=== PATIENT | female | born 1960 | race Caucasian/White ===

== ENCOUNTER → 2019-11-04 08:46 | Outpatient (CLI) | payer OTHER, SELFPAY ==
[2019-11-04 09:35] LABS: Influenza A - CEPHEID Flu A NEGATIVE (NEGATIVE); Influenza B - CEPHEID Flu B NEGATIVE (NEGATIVE)
== END ==
PROVIDERS: Family Provider Registered Nurse Women's Health Care, Ambulatory; PCP Registered Nurse Women's Health Care, Ambulatory; Visit Provider Physician Assistant
DX: R68.89 Other general symptoms and signs (principal)
CPT/HCPCS: 87502

== ENCOUNTER → 2020-09-06 15:55 | Outpatient (CLI) | payer OTHER, SELFPAY ==
--- NOTE | 2020-09-06 | DI.RAD.S_ITS ---
PROCEDURE: XR FOOT LT MIN 3V INDICATIONS: LEFT FOOT PAIN TECHNIQUE: 3 views of the foot were acquired. COMPARISON: None. FINDINGS: Bones: No fractures or dislocations. No suspicious bony lesions. There is severe 1st metatarsophalangeal joint degeneration. A small ossicle or broken osteophyte is noted at the 1st metatarsophalangeal joint. Soft tissues: No tibiotalar joint effusion. Achilles tendon appears normal. 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 Dictated by: Sonya Schofield M.D. on 09/06/2020 at 17:38 Approved by: Sonya Schofield M.D. on 09/06/2020 at 17:41
== END ==
PROVIDERS: Family Provider Registered Nurse Women's Health Care, Ambulatory; PCP Internal Medicine; Referring Provider Internal Medicine; Visit Provider Internal Medicine
DX: M79.672 Pain in left foot (principal); M19.072 Primary osteoarthritis, left ankle and foot
CPT/HCPCS: 73630

== ENCOUNTER → 2020-09-18 10:18 | Outpatient (CLI) | payer OTHER, SELFPAY ==
--- NOTE | 2020-09-18 | DI.MG.S_ITS ---
BILATERAL DIGITAL SCREENING MAMMOGRAM 3D/2D WITH CAD: 09/18/2020 CLINICAL: Routine screening. Family history of breast cancer. Comparison is made to exams dated: 03/26/2018 mammogram, 04/26/2016 mammogram, and 12/30/2014 mammogram - [facility]. The tissue of both breasts is heterogeneously dense. This may lower the sensitivity of mammography. Current study was also evaluated with a Computer Aided Detection (CAD) system. There is new cluster of grouped calcifications in the left breast at 11 o'clock posterior depth. No other significant masses, calcifications, or other findings are seen in either breast. IMPRESSION: INCOMPLETE: NEEDS ADDITIONAL IMAGING EVALUATION The new cluster of grouped calcifications in the left breast are indeterminate. Additional views with possible ultrasound are recommended. This exam was interpreted at Station ID: [id number]. NOTE: For mammograms, a report in lay terms will be sent to the patient. Approximately 15% of breast malignancies will not be visualized mammographically. In the management of a palpable breast mass, a negative mammogram must not discourage biopsy of a clinically suspicious lesion. Electronically Signed By: Jojo pacheco/thomas:09/20/2020 11:56:17 letter sent: Additional Imaging Needed ACR BI-RADS Category 0: Incomplete 3340F
== END ==
PROVIDERS: Family Provider Registered Nurse Women's Health Care, Ambulatory; PCP Internal Medicine; Referring Provider Internal Medicine; Visit Provider Internal Medicine
DX: Z12.31 Encounter for screening mammogram for malignant neoplasm of breast (principal); Z80.3 Family history of malignant neoplasm of breast
CPT/HCPCS: 77063; 77067

== ENCOUNTER → 2020-10-13 14:05 | Outpatient (CLI) | payer OTHER, SELFPAY ==
--- NOTE | 2020-10-13 | DI.MG.S_ITS ---
UNILATERAL LEFT DIGITAL DIAGNOSTIC MAMMOGRAM 3D/2D WITH ADDITIONAL VIEWS: 10/13/2020 CLINICAL: Additional evaluation requested from prior study. Comparison is made to exams dated: 09/18/2020 mammogram, 03/26/2018 mammogram, and 04/26/2016 mammogram - [facility]. The tissue of left breast is heterogeneously dense. This may lower the sensitivity of mammography. There is new cluster of grouped fine calcifications in the left breast at 11 o'clock posterior depth. These are seen in additional views. No other significant masses or calcifications are seen in the breast. IMPRESSION: SUSPICIOUS OF MALIGNANCY The new cluster of grouped fine calcifications in the left breast are at a moderate suspicion for malignancy. A stereotactic biopsy is recommended. Findings and recommendations were discussed with the patient by the onsite radiologist, Dr. Rhodes, at the time of the exam. This exam was interpreted at Station ID: [id number]. NOTE: For mammograms, a report in lay terms will be sent to the patient. Approximately 15% of breast malignancies will not be visualized mammographically. In the management of a palpable breast mass, a negative mammogram must not discourage biopsy of a clinically suspicious lesion. Electronically Signed By: Norm sawyer/thomas:10/13/2020 14:49:20 letter sent: Biopsy Required ACR BI-RADS Category 4b: Suspicious abnormality - intermediate suspicion of malignancy 3344F
== END ==
PROVIDERS: Family Provider Registered Nurse Women's Health Care, Ambulatory; PCP Internal Medicine; Referring Provider Internal Medicine; Visit Provider Internal Medicine
DX: R92.1 Mammographic calcification found on diagnostic imaging of breast (principal)
CPT/HCPCS: 77065; G0279

== ENCOUNTER → 2020-11-08 14:53 | Outpatient (CLI) | payer OTHER, SELFPAY ==
--- NOTE | 2020-11-08 15:18 | DI.ECHO.S_ITS ---
Echocardiogram Report + + :Name: JUAN MANUEL RUBIO Study Date: 11/08/2020 Height: 62 in : :[facility] Weight: 130 lb : : Gender: Female BSA: 1.6 m2 : :: 1960 Age: 60 yrs BP: 147/93 mmHg: :Reason For Study: MITRAL VALVE PROLAPSE : :Ordering Physician: CARMELLA WAY : :PARAMJIT Performed By: Farrah Mclain : :Referring: CARMELLA WAYP : + + Interpretation Summary The left ventricle is normal in size and wall thickness. Left ventricular systolic function appears normal without focal wall motion abnormalities. The ejection fraction is estimated to be 55-60%. Diastolic parameters suggest a relaxation abnormality of the left ventricle, consistent with probable normal filling pressures. The right ventricle is normal in size and function. Pulmonary artery pressures cannot be estimated because of the lack of a measurable TR jet velocity but the IVC suggests a CVP of around 3 mmHg. Both atria are normal in size. The mitral valve leaflets appear mildly thickened, but open well. There is mild mitral valve prolapse. There is mild to moderate mitral regurgitation. The mitral regurgitant jet is eccentrically directed. There is no other significant valvular heart disease. The aortic root is normal size. Procedure: A two-dimensional transthoracic echocardiogram with color flow and Doppler was performed. The study quality was technically difficult. There is no prior echocardiogram noted for this patient. The patient was in sinus rhythm with heart rates between 57-68 bpm during the exam. Left Ventricle: The left ventricle is normal in size and wall thickness. Left ventricular systolic function appears normal without focal wall motion abnormalities. The ejection fraction is estimated to be 55-60%. Diastolic parameters suggest a relaxation abnormality of the left ventricle, consistent with probable normal filling pressures. Right Ventricle: The right ventricle is normal in size and function. Atria: Both atria are normal in size. There is no Doppler evidence for an interatrial shunt. Mitral Valve: The mitral valve leaflets appear mildly thickened, but open well. There is mild mitral valve prolapse. There is mild to moderate mitral regurgitation. The mitral regurgitant jet is eccentrically directed. Aortic Valve: The aortic valve is trileaflet. The aortic valve opens well. There is no aortic valve stenosis. No aortic regurgitation is present. Tricuspid Valve: The tricuspid valve is not well visualized. The tricuspid valve is not well visualized, but is grossly normal. Pulmonary artery pressures cannot be estimated because of the lack of a measurable TR jet velocity but the IVC suggests a CVP of around 3 mmHg. Pulmonic Valve: The pulmonic valve is not well visualized. There is trace pulmonic regurgitation. Great Vessels: The aortic root is normal size. The dimensions of the ascending aorta are normal. The IVC is of normal diameter and collapses greater than 50% with a sniff. This suggests a low right atrial pressure of 3 mm Hg. Pericardium/ Pleura There is no pericardial effusion. There is no pleural effusion. MMode/2D Measurements & Calculations LVIDd: 4.0 cm LVOT diam: 2.0 cm LVIDs: 2.8 cm Ao root diam: 3.3 cm FS: 31.4 % asc Aorta Diam: 2.8 cm IVSd: 0.88 cm Ao Arch Diam (Prox Trans): 2.2 cm LVPWd: 0.73 cm LV narvaez. diameter/BSA (cm/m^2): 2.5 LV sys. diameter/BSA (cm/m^2): 1.7 LA A2 area: 14.5 cm2 RA long axis: 4.6 cm LA A4 area: 18.1 cm2 RA area: 12.7 cm2 LA length (vol): 5.3 cm RA vol: 29.7 ml LA vol: 42.0 ml RA : 18.7 ml/m2 LA vol index: 26.4 ml/m2 IVC diam: 1.1 cm RVD1 (basal): 2.6 cm TAPSE: 2.2 cm Doppler Measurements & Calculations Ao V2 max: 115.3 cm/sec LVOT Max Chapin: 79.2 cm/sec Ao V2 mean: 78.9 cm/sec LV V1 max P.5 mmHg Ao max P.3 mmHg LV V1 VTI: 17.1 cm Ao mean P.9 mmHg AMY(I,D): 2.4 cm2 Ao V2 VTI: 21.9 cm AMY(V,D): 2.1 cm2 sev ratio: 0.78 AMY indexed to BSA (cm^2/m^2): 1.5 MV E max chapin: 78.6 cm/sec PA V2 max: 61.8 cm/sec MV A max chapin: 104.6 cm/sec PA V2 mean: 42.8 cm/sec MV E/A: 0.75 PA mean P.83 mmHg Med Peak E' Chapin: 6.2 cm/sec PA pr(Accel): 10.5 mmHg E/E' med: 12.6 Lat Peak E' Chapin: 6.9 cm/sec E/E' lat: 11.3 E/e' average: 12.0 MV dec time: 0.27 sec SV(LVOT): 52.5 ml Reading Physician:07:36 PM
== END ==
PROVIDERS: Family Provider Registered Nurse Women's Health Care, Ambulatory; PCP Internal Medicine; Referring Provider Internal Medicine; Visit Provider Internal Medicine
DX: I34.1 Nonrheumatic mitral (valve) prolapse (principal); I34.0 Nonrheumatic mitral (valve) insufficiency
CPT/HCPCS: 93306

== ENCOUNTER → 2021-08-10 08:06 | Outpatient (CLI) | payer OTHER, SELFPAY ==
[2021-08-10 11:29] LABS: COVID19 -Nasal RAPID Negative (Negative)
== END ==
PROVIDERS: Family Provider Registered Nurse Women's Health Care, Ambulatory; PCP Internal Medicine; Visit Provider Nurse Practitioner Family
DX: Z20.822 Contact with and (suspected) exposure to COVID-19 (principal); R19.7 Diarrhea, unspecified; R53.83 Other fatigue; R09.81 Nasal congestion
CPT/HCPCS: 87635

== ENCOUNTER → 2021-10-05 17:46 | Outpatient (CLI) | payer OTHER, SELFPAY ==
--- NOTE | 2021-10-05 | DI.MG.S_ITS ---
BILATERAL DIGITAL SCREENING MAMMOGRAM 3D/2D WITH CAD: 10/05/2021 CLINICAL: Routine screening. Family history of breast cancer. Comparison is made to exams dated: 10/13/2020 mammogram, 09/18/2020 mammogram, 03/26/2018 mammogram, and 04/26/2016 mammogram - [facility]. The tissue of both breasts is heterogeneously dense. This may lower the sensitivity of mammography. Current study was also evaluated with a Computer Aided Detection (CAD) system. No significant masses, calcifications, or other findings are seen in either breast. There has been no significant interval change. IMPRESSION: NEGATIVE There is no mammographic evidence of malignancy. A 1 year screening mammogram is recommended. This exam was interpreted at Station ID: [id number]. NOTE: For mammograms, a report in lay terms will be sent to the patient. Approximately 15% of breast malignancies will not be visualized mammographically. In the management of a palpable breast mass, a negative mammogram must not discourage biopsy of a clinically suspicious lesion. Electronically Signed By: Basil Becerra M.D., jr/thomas:10/06/2021 08:47:44 letter sent: Normal Exam ACR BI-RADS Category 1: Negative 3341F
== END ==
PROVIDERS: Family Provider Registered Nurse Women's Health Care, Ambulatory; PCP Internal Medicine; Referring Provider Internal Medicine; Visit Provider Internal Medicine
DX: Z12.31 Encounter for screening mammogram for malignant neoplasm of breast (principal); Z80.3 Family history of malignant neoplasm of breast
CPT/HCPCS: 77063; 77067

== ENCOUNTER → 2021-12-02 09:24 | Outpatient (CLI) | payer OTHER, SELFPAY ==
[2021-12-02 10:46] LABS: COVID19 -Nasal RAPID Negative (Negative)
== END ==
PROVIDERS: Family Provider Registered Nurse Women's Health Care, Ambulatory; PCP Internal Medicine; Visit Provider Nurse Practitioner Critical Care Medicine
DX: Z20.822 Contact with and (suspected) exposure to COVID-19 (principal)
CPT/HCPCS: 87635

== ENCOUNTER → 2022-05-19 13:26 | Outpatient (CLI) | payer OTHER, SELFPAY ==
[2022-05-19 14:17] LABS: COVID19 -Nasal RAPID Negative (Negative)
== END ==
PROVIDERS: Family Provider Registered Nurse Women's Health Care, Ambulatory; PCP Internal Medicine; Visit Provider Nurse Practitioner Family
DX: Z20.822 Contact with and (suspected) exposure to COVID-19 (principal)
CPT/HCPCS: 87635

== ENCOUNTER → 2022-05-19 13:33 | Outpatient (CLI) | payer OTHER, SELFPAY ==
--- NOTE | 2022-05-19 13:35 | DI.RAD.S_ITS ---
PROCEDURE: XR CHEST 2V INDICATIONS: cough TECHNIQUE: 2 views of the chest were acquired. COMPARISON: None. FINDINGS: Surgical changes and devices: None. Lungs and pleura: Lungs are clear. No pleural effusions or pneumothorax. Mediastinum: Mediastinal contours are normal. Heart size is normal. Bones and chest wall: No suspicious bony abnormalities. Soft tissues appear unremarkable. IMPRESSION: No evidence acute pulmonary process. Dictated by: Meir Hagan M.D. on 05/19/2022 at 16:50 Approved by: Meir Hagan M.D. on 05/19/2022 at 16:51
== END ==
PROVIDERS: Family Provider Registered Nurse Women's Health Care, Ambulatory; PCP Internal Medicine; Referring Provider Nurse Practitioner Family; Visit Provider Nurse Practitioner Family
DX: R05.9 Cough, unspecified (principal); Z20.822 Contact with and (suspected) exposure to COVID-19
CPT/HCPCS: 71046; 87635

== ENCOUNTER → 2022-10-27 10:57 | Outpatient (CLI) | payer OTHER, SELFPAY ==
--- NOTE | 2022-10-27 | DI.MG.S_ITS ---
BILATERAL DIGITAL SCREENING MAMMOGRAM 3D/2D WITH CAD: 10/27/2022 CLINICAL: Routine screening. Family history of breast cancer. Comparison is made to exams dated: 10/05/2021 mammogram, 10/13/2020 mammogram, 09/18/2020 mammogram, and 03/26/2018 mammogram - [facility]. Both breasts are heterogeneously dense, which may obscure small masses (category c / 51-75% glandular tissue). Current study was also evaluated with a Computer Aided Detection (CAD) system. There is a biopsy clip in the left breast. No significant masses, calcifications, or other findings are seen in either breast. There has been no significant interval change. IMPRESSION: NEGATIVE There is no mammographic evidence of malignancy. A 1 year screening mammogram is recommended. Based on Tyrer-Cuzick model (a risk assessment model), the patient's lifetime risk is 20.4% and her 10 year risk is 8.6%. If a patient has an elevated risk, a more comprehensive evaluation should be considered and/or a referral to a genetic counselor. The [place] [employer], [place] [employer], and NCCN Guidelines advise the consideration of Breast MRI as an adjunct to screening mammography in patients whose Lifetime risk to develop breast cancer is 20% or higher. This exam was interpreted at Station ID: [id number]. NOTE: For mammograms, a report in lay terms will be sent to the patient. Approximately 15% of breast malignancies will not be visualized mammographically. In the management of a palpable breast mass, a negative mammogram must not discourage biopsy of a clinically suspicious lesion. Electronically Signed By: Jojo pacheco/thomas:10/27/2022 14:32:35 letter sent: Normal Exam ACR BI-RADS Category 1: Negative 3341F
== END ==
PROVIDERS: Family Provider Registered Nurse Women's Health Care, Ambulatory; PCP Internal Medicine; Referring Provider Internal Medicine; Visit Provider Internal Medicine
DX: Z12.31 Encounter for screening mammogram for malignant neoplasm of breast (principal); Z80.3 Family history of malignant neoplasm of breast
CPT/HCPCS: 77063; 77067

== ENCOUNTER → 2022-12-17 13:28 | Outpatient (CLI) | payer OTHER, SELFPAY ==
[2022-12-17 14:15] LABS: Influenza A - CEPHEID Flu A NEGATIVE (NEGATIVE); Influenza B - CEPHEID Flu B NEGATIVE (NEGATIVE); Respiratory Syncytial Virus Negative (Negative)
[2022-12-17 14:17] LABS: COVID-19 CEPHEID 4-PLEX PCR Negative (Negative)
== END ==
PROVIDERS: Family Provider Registered Nurse Women's Health Care, Ambulatory; PCP Internal Medicine; Visit Provider Student in an Organized Health Care Education/Training Program
DX: R05.1 Acute cough (principal)
CPT/HCPCS: 0241U

== ENCOUNTER → 2022-12-17 14:18 | Outpatient (CLI) | payer OTHER, SELFPAY ==
--- NOTE | 2022-12-17 14:19 | DI.RAD.S_ITS ---
PROCEDURE: XR CHEST 2V INDICATIONS: R middle lobe pneumonia vs airway dz TECHNIQUE: 2 views of the chest were acquired. COMPARISON: [facility], CR, XR CHEST 2V, 05/19/2022, 13:27. FINDINGS: Surgical changes and devices: None. Lungs and pleura: Lungs are clear. No pleural effusions or pneumothorax. Mediastinum: Mediastinal contours are normal. Heart size is normal. Bones and chest wall: No suspicious bony abnormalities. Pectus excavatum deformity. Soft tissues appear unremarkable. IMPRESSION: No acute cardiopulmonary disease. Dictated by: Jojo Ellington M.D. on 12/17/2022 at 13:44 Approved by: Jojo Ellington M.D. on 12/17/2022 at 13:45
== END ==
PROVIDERS: Family Provider Registered Nurse Women's Health Care, Ambulatory; PCP Internal Medicine; Referring Provider Student in an Organized Health Care Education/Training Program; Visit Provider Student in an Organized Health Care Education/Training Program
DX: J06.9 Acute upper respiratory infection, unspecified (principal); R53.83 Other fatigue; R05.1 Acute cough
CPT/HCPCS: 0241U; 71046

== ENCOUNTER → 2023-11-13 12:47 | Outpatient (CLI) | payer OTHER, SELFPAY ==
--- NOTE | 2023-11-13 12:48 | DI.MG.S_ITS ---
BILATERAL DIGITAL SCREENING MAMMOGRAM 3D/2D WITH CAD: 11/13/2023 CLINICAL: Routine screening. Family history of breast cancer. Comparison is made to exams dated: 10/27/2022 mammogram, 10/05/2021 mammogram, 10/13/2020 mammogram, and 09/18/2020 mammogram - [facility]. There are scattered areas of fibroglandular density in both breasts (category b / 25%-50% glandular tissue). Current study was also evaluated with a Computer Aided Detection (CAD) system. There is a biopsy clip in the left breast. No significant masses, calcifications, or other findings are seen in either breast. There has been no significant interval change. IMPRESSION: NEGATIVE There is no mammographic evidence of malignancy. A 1 year screening mammogram is recommended. Based on the Tyrer Cuzick model (a risk assessment model) the patient's lifetime risk is 13.6% and her 10 year risk is 5.8%. According to the ACR, ACS, and NCCN guidelines, an annual breast MRI exam along with mammogram is recommended if the patient's lifetime risk is 20% or greater. This exam was interpreted at Station ID: [id number]. NOTE: For mammograms, a report in lay terms will be sent to the patient. Approximately 15% of breast malignancies will not be visualized mammographically. In the management of a palpable breast mass, a negative mammogram must not discourage biopsy of a clinically suspicious lesion. Electronically Signed By: Jojo pacheco/thomas:11/13/2023 14:48:45 letter sent: Normal Exam ACR BI-RADS Category 1: Negative 3341F
== END ==
PROVIDERS: Family Provider Registered Nurse Women's Health Care, Ambulatory; PCP Internal Medicine; Referring Provider Internal Medicine; Visit Provider Internal Medicine
DX: Z12.31 Encounter for screening mammogram for malignant neoplasm of breast (principal); Z80.3 Family history of malignant neoplasm of breast
CPT/HCPCS: 77063; 77067

== ENCOUNTER → 2023-11-27 | Outpatient (CLI) | payer OTHER, SELFPAY ==
--- NOTE | 2023-11-29 08:30 | DI.ECHO.S_ITS ---
[facility] +---------+ : : [address] [place] : : : : [id number] : : : : Phone: [phone]---------+ Echocardiogram Report + + :Name: JUAN MANUEL RUBIO Study Date: 11/27/2023 Height: 62 in : :[facility] ReadingLocation: Weight: 130 lb : : Gender: Female BSA: 1.6 m2 : :: 1960 Age: 63 yrs BP: 131/83 mmHg: :Reason For Study: HEART PALPITATIONS, MURMUR : :Ordering Physician: CARMELLA WAY : :STERILE PROCESSING TECHNICIAN Performed By: Farrah Mclain : :Referring: CARMELLA WAY STERILE PROCESSING TECHNICIAN : + + Interpretation Summary The ejection fraction is estimated to be 55-60%. Diastolic function could not be accurately assessed due to unobtainable data. The right ventricular cavity is small. The right ventricular systolic function is normal. There is mild mitral valve prolapse. There is mild to moderate mitral regurgitation. Pulmonary artery pressures cannot be estimated because of the lack of a measurable TR jet velocity but the IVC suggests a CVP of around 3 mmHg. Compared to the prior study dated 11/08/2020, no significant change. Procedure: A two-dimensional transthoracic echocardiogram with color flow and Doppler was performed. The study quality was technically adequate. Comparison is made with the echocardiogram of 11/08/2020. The patient was in normal sinus rhythm during the exam. Left Ventricle: The left ventricle is normal in size and wall thickness. The ejection fraction is estimated to be 55-60%. Diastolic function could not be accurately assessed due to unobtainable data. Right Ventricle: The right ventricular cavity is small. The right ventricular systolic function is normal. Atria: The left atrial size is normal. Right atrial size is normal. There is no Doppler evidence for an interatrial shunt. Mitral Valve: The mitral valve leaflets appear mildly thickened, but open well. There is mild mitral valve prolapse. The mitral regurgitant jet is eccentrically directed. There is mild to moderate mitral regurgitation. Aortic Valve: The aortic valve is trileaflet. The aortic valve opens well. There is no aortic valve stenosis. No aortic regurgitation is present. Tricuspid Valve: The tricuspid valve is normal in structure and function. No tricuspid regurgitation. Pulmonary artery pressures cannot be estimated because of the lack of a measurable TR jet velocity but the IVC suggests a CVP of around 3 mmHg. Pulmonic Valve: The pulmonic valve leaflets are thin and pliable; valve motion is normal. There is a trace or physiologic amount of pulmonic regurgitation. Great Vessels: The aortic root is normal size. The dimensions of the ascending aorta are normal. The IVC is of normal diameter and collapses greater than 50% with a sniff. This suggests a low right atrial pressure of 3 mm Hg. Pericardium/ Pleura There is no pericardial effusion. There is no pleural effusion. MMode/2D Measurements & Calculations LVIDd: 4.4 cm LVOT diam: 2.0 cm LVIDs: 2.8 cm Ao root diam: 3.0 cm FS: 37.0 % asc Aorta Diam: 2.9 cm EPSS: 0.22 cm Ao Arch Diam (Prox Trans): 2.3 cm IVSd: 0.78 cm LVPWd: 0.76 cm LV narvaez. diameter/BSA (cm/m^2): 2.8 LV sys. diameter/BSA (cm/m^2): 1.8 LA A2 area: 14.3 cm2 RA long axis: 4.8 cm LA A4 area: 15.7 cm2 RA area: 9.0 cm2 LA length (vol): 6.3 cm RA vol: 14.4 ml LA vol: 30.3 ml RA : 9.1 ml/m2 LA vol index: 19.0 ml/m2 IVC diam: 1.4 cm RVD1 (basal): 2.0 cm RVD2 (mid): 1.5 cm TAPSE: 1.7 cm Doppler Measurements & Calculations Ao V2 max: 112.7 cm/sec LVOT Max Chapin: 81.6 cm/sec Ao V2 mean: 81.6 cm/sec LV V1 max P.7 mmHg Ao max P.1 mmHg LV V1 VTI: 18.4 cm Ao mean P.9 mmHg AMY(I,D): 2.3 cm2 Ao V2 VTI: 24.2 cm AMY(V,D): 2.2 cm2 sev ratio: 0.76 AMY indexed to BSA (cm^2/m^2): 1.4 MV E max chapin: 94.8 cm/sec PA V2 max: 67.8 cm/sec MV A max chapin: 80.0 cm/sec PA V2 mean: 54.2 cm/sec MV E/A: 1.2 PA mean P.3 mmHg Med Peak E' Chapin: 4.8 cm/sec PA pr(Accel): 36.2 mmHg E/E' med: 19.8 Lat Peak E' Chapin: 7.2 cm/sec E/E' lat: 13.2 E/e' average: 16.5 MV dec time: 0.33 sec SV(LVOT): 55.4 ml Reading Physician:03:00 PM
== END ==
LOC: ECHO 08:02
PROVIDERS: Family Provider Registered Nurse Women's Health Care, Ambulatory; PCP Internal Medicine; Referring Provider Internal Medicine; Visit Provider Internal Medicine
DX: I34.0 Nonrheumatic mitral (valve) insufficiency (principal); I34.1 Nonrheumatic mitral (valve) prolapse; R00.2 Palpitations; R55 Syncope and collapse; R01.1 Cardiac murmur, unspecified
CPT/HCPCS: 93306

== ENCOUNTER → 2024-02-27 16:24 | Outpatient (CLI) | payer OTHER, SELFPAY ==
--- NOTE | 2024-02-27 16:27 | DI.RAD.S_ITS ---
PROCEDURE: XR HAND LT MIN 3V INDICATIONS: LT HAND INJURY TECHNIQUE: 3 views of the hand(s) acquired. COMPARISON: None. FINDINGS: Bones: No fractures or dislocations. Carpal bones are normally aligned. No suspicious bony lesions. Mild joint space narrowing and juxta-articular osteophytosis at the 1st IP joint. Soft tissues: No suspicious soft tissue calcifications. IMPRESSION: 1. No acute bony abnormality. If clinical symptoms persist, consider repeat radiograph in 10-14 days versus cross-sectional imaging. 2. 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 Dictated by: Belen Rodrigues M.D. on 02/27/2024 at 18:03 Approved by: Belen Rodrigues M.D. on 02/27/2024 at 18:05
== END ==
PROVIDERS: Family Provider Registered Nurse Women's Health Care, Ambulatory; PCP Internal Medicine; Referring Provider Internal Medicine; Visit Provider Internal Medicine
DX: S69.92XA Unspecified injury of left wrist, hand and finger(s), initial encounter (principal); M19.042 Primary osteoarthritis, left hand; X58.XXXA Exposure to other specified factors, initial encounter
CPT/HCPCS: 73130

== ENCOUNTER → 2024-04-10 12:27 | Outpatient (CLI) | payer OTHER, SELFPAY ==
--- NOTE | 2024-04-10 | DI.RAD.S_ITS ---
PROCEDURE: XR CHEST 2V INDICATIONS: ACUTE COUGH TECHNIQUE: 2 views of the chest were acquired. COMPARISON: [facility], CR, XR CHEST 2V, 12/17/2022, 14:16. FINDINGS: Surgical changes and devices: None. Lungs and pleura: Lungs are clear. No pleural effusions or pneumothorax. Mediastinum: Mediastinal contours are normal. Heart size is enlarged. Bones and chest wall: No suspicious bony abnormalities. Soft tissues appear unremarkable. IMPRESSION: No acute pulmonary process. Dictated by: Erlinda Lenz M.D. on 04/10/2024 at 17:06 Approved by: Erlinda Lenz M.D. on 04/10/2024 at 17:06
== END ==
PROVIDERS: Family Provider Registered Nurse Women's Health Care, Ambulatory; PCP Internal Medicine; Referring Provider Registered Nurse; Visit Provider Registered Nurse
DX: R05.1 Acute cough (principal); I51.7 Cardiomegaly
CPT/HCPCS: 71046

== ENCOUNTER → 2024-05-30 07:47 | Outpatient (CLI) | payer OTHER, SELFPAY ==
--- NOTE | 2024-05-30 07:47 | DI.NM.S_ITS ---
PROCEDURE: NM EXERCISE TREADMILL NON NUC COMPARISON: None. INDICATIONS: Nonrheumatic mitral (valve) insufficiency/VPD FINDINGS: Total exercise time was 9 minutes 53 seconds. Test was terminated secondary to fatigue. Maximal heart rate obtained was under 54 bpm which is 97% of maximum heart rate. Maximum blood pressure was 155/88[place] [address]. CHANG of -14%. 10.5 METS obtained. No chest pains voiced. No ischemic changes noted. No arrhythmias present. Normal heart rate and blood pressure response to exercise. IMPRESSION: 1. Negative exercise treadmill stress test in terms of ischemia. 2. Above average exercise tolerance. Dictated by: Ayo Moser M.D. on 05/30/2024 at 15:42 Approved by: Ayo Moser M.D. on 05/30/2024 at 15:45
== END ==
LOC: DI 07:47
PROVIDERS: Family Provider Registered Nurse Women's Health Care, Ambulatory; PCP Internal Medicine; Referring Provider Nurse Practitioner; Visit Provider Nurse Practitioner
DX: I34.0 Nonrheumatic mitral (valve) insufficiency (principal); I49.3 Ventricular premature depolarization
CPT/HCPCS: 93017

== ENCOUNTER → 2024-11-17 15:22 | Outpatient (CLI) | payer OTHER, SELFPAY ==
--- NOTE | 2024-11-17 | DI.MG.S_ITS ---
BILATERAL DIGITAL SCREENING MAMMOGRAM 3D/2D WITH CAD: 11/17/2024 CLINICAL: Routine screening. Family history of breast cancer. Comparison is made to exams dated: 11/13/2023 mammogram, 10/27/2022 mammogram, and 10/05/2021 mammogram - [facility]. There are scattered areas of fibroglandular density (category b / 25%-50% glandular tissue). Current study was also evaluated with a Computer Aided Detection (CAD) system. There is a biopsy clip in the left breast. No significant masses, calcifications, or other findings are seen in either breast. There has been no significant interval change. IMPRESSION: BENIGN There is no mammographic evidence of malignancy. A 1 year screening mammogram is recommended. Based on the Tyrer Cuzick model (a risk assessment model) the patient's lifetime risk is 13.2% and her 10 year risk is 5.8%. According to the ACR, ACS, and NCCN guidelines, an annual breast MRI exam along with mammogram is recommended if the patient's lifetime risk is 20% or greater. This exam was interpreted at Station ID: [id number]. NOTE: For mammograms, a report in lay terms will be sent to the patient. Approximately 15% of breast malignancies will not be visualized mammographically. In the management of a palpable breast mass, a negative mammogram must not discourage biopsy of a clinically suspicious lesion. Electronically Signed By: Moise guy/thomas:11/18/2024 10:55:02 letter sent: Normal Exam ACR BI-RADS Category 2: Benign
== END ==
LOC: MAMMO 15:22
PROVIDERS: Family Provider Registered Nurse Women's Health Care, Ambulatory; PCP Internal Medicine; Referring Provider Internal Medicine; Visit Provider Internal Medicine
DX: Z12.31 Encounter for screening mammogram for malignant neoplasm of breast (principal); Z80.3 Family history of malignant neoplasm of breast
CPT/HCPCS: 77063; 77067

== ENCOUNTER → 2024-12-31 10:58 | Outpatient (CLI) | payer OTHER, SELFPAY ==
--- NOTE | 2024-12-31 11:00 | DI.RAD.S_ITS ---
PROCEDURE: XR DEXA AXIAL SKELETON INDICATIONS: SCREENING FOR OSTEOPOROSIS COMPARISON: None. FINDINGS: Lumbar Spine: Bone mineral density 0.945 g/cm2, T score -1, normal. Left Femoral Neck: Bone mineral density 0.736 g/cm2, T score -1. Left Hip: Bone mineral density 0.843 g/cm2, T score -0.8, normal. Fracture Risk Calculation (when applicable): Not reported due to normal bone mineralization. (T score greater or equal to -1.0 to: NORMAL) (T score from -1.1 to -2.4: OSTEOPENIA) (T score less than or equal to -2.5: OSTEOPOROSIS) IMPRESSION: Normal bone mineralization. Follow-up guidelines as follows: Osteoporosis: Consider a repeat DEXA and Vertebral Fracture Assessment (VFA) exam in 2 years or sooner if medically necessary, to reassess this patient's status. Osteopenia: Consider a repeat DEXA in 2-3 years to reassess this patient's status, or if there is a new clinical indication. Normal: Consider a repeat DEXA in 5 years or sooner, or if there is a new clinical indication. All treatment decisions require clinical judgment and consideration of individual patient factors, including patient preferences, comorbidities, previous drug use, risk factors not captured in the FRAX model (e.g., frailty, falls, vitamin D deficiency, increased bone turnover, interval significant decline in bone density ) and possible under- or over-estimation of fracture risk by FRAX. In addition, the NOF Guide recommends that FDA-approved medical therapies be considered in postmenopausal women and men age >= 50 years with a: * Hip or vertebral (clinical or morphometric) fracture * T-score of <=-2.5 at the spine or hip * Ten-year fracture probability by FRAX of >= 3% for hip fracture or >=20% for major osteoporotic fracture. Dictated by: Moe Fabian M.D. on 12/31/2024 at 13:42 Approved by: Moe Faiban M.D. on 12/31/2024 at 13:42
== END ==
LOC: RAD 10:59
PROVIDERS: Family Provider Registered Nurse Women's Health Care, Ambulatory; PCP Family Medicine; Referring Provider Family Medicine; Visit Provider Family Medicine
DX: Z00.00 Encounter for general adult medical examination without abnormal findings (principal); K52.9 Noninfective gastroenteritis and colitis, unspecified; Z78.0 Asymptomatic menopausal state
CPT/HCPCS: 77080

== ENCOUNTER → 2025-01-08 13:32 | Outpatient (CLI) | payer OTHER, SELFPAY | PROVIDERS: Family Provider Registered Nurse Women's Health Care, Ambulatory; PCP Family Medicine; Referring Provider Physician Assistant; Visit Provider Physician Assistant | DX: R19.7 Diarrhea, unspecified (principal) | CPT/HCPCS: 87177 ==